=== PATIENT | male | born 1975 | race Caucasian/White ===

== ENCOUNTER 2018-09-20 17:55 | Emergency (ER) | payer SELFPAY ==
[~2018-09-20] VITALS: Wt 90.0 kg
[2018-09-20] MEDS ORDERED: IBUPROFEN 800 MG TAB PO ONE (20:30)
--- NOTE | 2018-09-20 20:47 | ERD ---
ER Documentation Chief Complaint Chief Complaint right hand sweling, pain slight redness, punched window last wednesday HPI 43-year-old male presenting to the emergency department complaining of right hand pain and swelling after punching a window approximately 2 days ago. The patient states he was angry and this caused him to punch the window. He reports constant pain which is worse with movement of the hand and rated 7/10 in severity. He took [id number] medications with some relief. He denies any other symptoms or injuries at this time. ROS All systems reviewed and are negative except as per history of present illness. Medications Home Meds Active Scripts Naproxen* (Naprosyn*) 500 Mg Tablet, 500 MG PO BID PRN for PAIN AND/OR INFLAMMATION, #30 TAB Prov:TRENTON MURPHY PA-C 09/20/18 Allergies Allergies: Coded Allergies: No Known Allergy (Unverified , 09/20/18) PMhx/Soc Medical and Surgical Hx: pt denies Medical Hx, pt denies Surgical Hx Hx Alcohol Use: No Hx Substance Use: No Hx Tobacco Use: No Smoking Status: Never smoker FmHx Family History: No diabetes Physical Exam Vitals Vital Signs Date Temp Pulse Resp B/P (MAP) Pulse Ox O2 O2 Flow FiO2 Time Delivery Rate 09/20/18 98.4 66 17 130/82 100 Room Air 21:51 (98) 09/20/18 98.1 94 18 142/94 99 17:58 (110) Physical Exam Const: No acute distress Head: Atraumatic Eyes: Normal Conjunctiva ENT: Normal External Ears, Nose and Mouth. Neck: Full range of motion. No meningismus. Resp: No respiratory distress. Back: No midline or flank tenderness Ext: No cyanosis, or edema. There is edema and tenderness palpation over the right fourth metacarpal. No obvious deformity or open fracture. Patient is neurovascularly intact to the right upper extremity. 2+ radial pulses of the right upper extremity. Neur: Awake and alert Psych: Normal Mood and Affect Results 24 hrs Current Medications Medications Dose Sig/Kevin Start Time Status Last (Trade) Ordered Route PRN Stop Time Admin Dose Reason Admin Ibuprofen 800 mg ONCE ONCE 09/20/18 DC 09/20/18 (Motrin) PO 20:30 20:12 09/20/18 20:31 [place] [id number] Radiology Main Line: [phone] DIAGNOSTIC IMAGING REPORT Patient: SEBAS FAY : 1975 Age: 43 Sex: M MR #: [id number] DOS: 09/20/18 0000 Ordering MD: TRENTON MURPHY PA-C Location: [facility] Room/Bed: PROCEDURE: X-ray right hand. CLINICAL INDICATION: Right hand pain. TECHNIQUE: AP, lateral and oblique views of the right hand. COMPARISON: None. FINDINGS: Remote healed oblique fracture deformity at the proximal diaphysis of the right fourth metacarpal. The fracture deformity demonstrates apex dorsal angulation. No acute fractures are identified. Soft tissue swelling seen over the dorsum of the right hand. IMPRESSION: 1. Remote healed oblique fracture at the proximal diaphysis of the right fourth metacarpal. 2. No acute fracture. 3. Soft tissue swelling is seen over the dorsum of the right hand. RPTAT: [facility] Physician Concha Date Time Electronically viewed and signed by Physician Concha on 09/20/2018 20:56 RS/ CC: TRENTON MURPHY PA-C [id number] Procedures/MDM 43-year-old male presenting to the emergency department complaining of right hand pain after punching a window approximately 2 days ago. X-ray showed Remote healed fracture of the right hand. Patient required splint for immobilization of fracture.Splint Assessment: Neurovascularly intact post splint placement with good fit. Patient's extremity symptoms have stabilized while they have been evaluated in the department and are appropriate for outpatient follow up. No evidence of compartment syndrome, neurologic injury, vascular injury, open joint, open fracture, tendon laceration, or foreign body. Patient advised follow-up with orthopedics within the next 24 to 48 hours. No evidence of life- threatening pathology at time of discharge. Pt/family in agreement with discharge plan/diagnosis. Pt/family advised to return immediately with any new or worsening symptoms. Follow-up with primary care physician within the next 1- 2 days. Patient's blood pressure was elevated (>120/80) but appears stable without evidence of hypertension emergency or urgency. The patient is to follow-up and pursue outpatient monitoring and therapy with their primary care physician within 1 week and return immediately if they have any new, worsening, or concerning symptoms. Disclaimer: Inadvertent spelling and grammatical errors are likely due to EHR/dictation software use and do not reflect on the overall quality of patient care. Also, please note that the electronic time recorded on this note does not necessarily reflect the actual time of the patient encounter. Departure Diagnosis: Primary Impression: Injury of hand Encounter type: initial encounter Laterality: right Qualified Codes: S69.91XA - Unspecified injury of right wrist, hand and finger(s), initial encounter Condition: Fair Additional Instructions: Follow up with your PCP within the next 1-3 days for a repeat evaluation. If you require a referral to a specialist, your Primary Care Provider may be able to provide this for you. In most patient cases, a referral is not required. If you have further questions regarding this matter, please ask your Primary Care Provider. Return the the emergency department immediately if symptoms worsen or change. If you have any questions regarding medications, ask your pharmacist or us before you leave. If any adverse reactions, occur while taking your medications, discontinue the treatment and return to the emergency department immediately. If any new or worsening symptoms, uncontrolled fevers, or other unexplained symptoms occur, return to the emergency department immediately. Take your medications as directed, and complete the entire course of treatment. TRENTON MURPHY PA-C September 20, 2018 20:47
[2018-09-20] MEDS ORDERED: NAPR-985 PO (21:11)
[2018-09-20 21:51] VITALS: BP 130/82; PULSE 66; RESP 17
== END 2018-09-20 21:52 | disposition home or self-care (01) ==
LOC: FTE 17:55
DX: S62.304A Unspecified fracture of fourth metacarpal bone, right hand, initial encounter for closed fracture (principal); W22.8XXA Striking against or struck by other objects, initial encounter; Y92.9 Unspecified place or not applicable